=== PATIENT | female | born 1970 | race Caucasian/White ===

== ENCOUNTER 2021-12-31 15:35 | Emergency (ER) | payer BC ==
[2021-12-31] MEDS ORDERED: Ondansetron PF 4 MG/2 ML Vial ONE (17:04)
[2021-12-31 17:24] LABS: ALT (SGPT) 35 U/L (8-55); AST (SGOT) 25 U/L (5-34); Albumin 4.5 g/dL (3.5-5.0); Alkaline Phosphatase 70 U/L (40-110); Anion Gap 16 mmol/L (10-20); BUN (Urea Nitrogen) 15 mg/dL (9.8-20.1); Bilirubin, Total 0.8 mg/dL (0.2-1.2); Calc. Creatinine Clearance 0 mL/min (70-130); Calcium 9.9 mg/dL (7.8-10.44); Carbon Dioxide 23 mmol/L (22-29); Chloride 101 mmol/L (98-107); Glucose 201 mg/dL (70-105); Potassium 4.2 mmol/L (3.5-5.1); Protein, Total 7.5 g/dL (6.0-8.3); Sodium 136 mmol/L (136-145)
[2021-12-31] MEDS ORDERED: Dicyclomine 20 MG/2 ML VIAL ONE (18:46)
[2021-12-31] MEDS ORDERED: Promethazine HCl 25 MG/ML VIAL ONE (18:47)
[2021-12-31] MEDS ORDERED: Morphine 4 MG/ML VIAL ONE (19:42)
== END 2021-12-31 19:46 | disposition home or self-care (01) ==
LOC: CSHERS 15:35
DX: R11.2 Nausea with vomiting, unspecified (principal); R10.9 Unspecified abdominal pain; T38.3X5A Adverse effect of insulin and oral hypoglycemic [antidiabetic] drugs, initial encounter; G43.909 Migraine, unspecified, not intractable, without status migrainosus; J45.909 Unspecified asthma, uncomplicated; F17.210 Nicotine dependence, cigarettes, uncomplicated; M79.7 Fibromyalgia
CPT/HCPCS: 36415; 80053; 96365; 96372; 96375; J0500; J2270; J2405; J2550